=== PATIENT | male | born 1975 | race Two or more races ===

== ENCOUNTER 2024-02-14 10:45 | Outpatient (AMB) | payer OTHER, SELFPAY ==
--- NOTE | 2024-02-14 10:48 | MHC.OFFVIS ---
Vital Signs 02/14/24 11:03 Height 5 ft 4 in Weight 287 lb 14.779 oz BMI 49.4 BP 112/70 Blood Pressure Location Rt radial Position Sitting Pulse 81 Pulse Source Pulse Oximeter Pulse Oximetry (%) 93 Oxygen Delivery Method Room Air Intake Visit Reasons: bl hand pain/cm Intake Note: Patient presents for bilateral hand pain. Feeling tingling, numbness and sometimes my hands lock. It's been a year dealing with this. I take Aleve and it only works short term. Allergies acetaminophen [ACETAMINOPHEN] Allergy (Severe, Verified 02/14/24 10:56) HIVES amoxicillin [AMOXICILLIN] Allergy (Severe, Verified 02/14/24 10:56) HIVES Penicillins [PENICILLINS] Allergy (Severe, Verified 02/14/24 10:56) HIVES SEAFOOD Allergy (Severe, Uncoded 01/03/20 18:20) ANAPHYLAXIS Medication List - Last Reconciled 02/14/24 by Ary Vicente MD ammonium lactate 12% appl topical azithromycin 250 mg PO DIRECTED betamethasone dipropionate 0.05% topical capsaicin 0.1% appl topical cholecalciferol (vitamin D3) 1,250 mcg PO QWEEK doxepin 10 mg PO BEDTIME fluoxetine 20 mg PO DAILY fluticasone propionate 50 mcg/actuation sprays intranasal hydroxyzine pamoate 50 mg PO TID ketoconazole 2% topical lidocaine 5% 1 patch topical DAILY omeprazole 40 mg PO DAILY tizanidine 4 mg PO BEDTIME [wrist splint As directed] HPI Comments Details: This is a 48-year-old male who presents for evaluation of bilateral hand pain and elevated ESR. He states that the majority of his back pain is in his lower back. He had injections in his lower back which did not help much. He was recently referred to PT. patient twisted his ankle years ago and it did not heal properly. He states that he has a deformity now if his right ankle and has to use a cane, he holds the cane with his right hand. He states that his right hand sometimes gets stuck and stiff associated with tingling. He is unaware of any family history of an autoimmune rheumatic disease. Denies any history of DVT/PE [facility] Medical History Acute anxiety Obstructive sleep apnea (adult) (pediatric) Morbid (severe) obesity due to excess calories Vitamin D deficiency, unspecified Lumbago with sciatica, unspecified side Spondylosis, unspecified Acute depression Nonalcoholic steatohepatitis (SEVERINO) Prediabetes GERD (gastroesophageal reflux disease) Personal history of COVID-19 Surgical History History of excision of pilonidal cyst Social History Household Members: None Housing: House Alcohol intake: never Patient Tobacco Use Status: Current someday Tobacco user Tobacco use type: Cigarette Years Smoked: 30 Review of Systems ENT Reports neck pain Musc Reports arthralgias, Reports neck pain, Reports stiffness and Reports tingling Neuro Reports tingling Physical Exam Vital Signs: Last Vital Signs Pulse 81 02/14/24 11:03 BP 112/70 02/14/24 11:03 Pulse Ox 93 02/14/24 11:03 Oxygen Delivery Method Room Air 02/14/24 11:03 BMI result Body Mass Index 49.4 Const General: cooperative, healthy appearing and comfortable Nutritional Appearance: obese morbidly obese Orientation/consciousness: patient oriented x3 Limitations: ambulation with cane HEENT Other: Mildly dry oral mucosa Head: Yes normocephalic and Yes atraumatic Resp Effort & Inspection: normal respiratory effort and able to speak in complete sentences Auscultation: clear to auscultation bilaterally Skin General skin exam: no rashes or lesions noted Neuro General: patient oriented x3 Extrem Other: No significant arthritic changes of both hands Positive Tinel sign bilaterally Much more prominent on the right hand Normal bilateral hand forming machine tender strength Positive Spurling's test on the right Assessment & Plan Assessment & Plan (1) Right carpal tunnel syndrome: Code(s): G56.01 - Carpal tunnel syndrome, right upper limb Category: Medical Plan: This is a 48-year-old male who presents for evaluation of bilateral hand pain in the context of elevated ESR. Upon evaluation I do not see any signs suggestive of an autoimmune rheumatic disease. Right hand pain is likely related to overuse tendonitis. There is also a component of carpal tunnel syndrome. I prescribed him a wrist splint. If he continues to have ongoing tingling/numbness of his hands, I suggest getting bilateral upper extremity EMG/NCV. Follow-up with PCP (2) Degenerative cervical disc: Code(s): M50.30 - Other cervical disc degeneration, unspecified cervical region Category: Medical Plan: Positive Spurling's test on the right. Patient states that he will be going to PT for his lower back. I suggested doing PT for his neck as well. Plan I spent 46 minutes reviewing patient's chart, evaluating patient, placing orders, counseling patient and documenting in the chart Medications: New [wrist splint] As directed 1 ea 0RF G56.01 - Carpal tunnel syndrome, right upper limb Coding Level of Care Code New Pt Level 4 (65912) Diagnoses Right carpal tunnel syndrome G56.01 Degenerative cervical disc M50.30
[2024-02-14 11:03] VITALS: BP 112/70; PULSE 81; O2SAT 93; BMI 49.4
== END 2024-02-14 11:23 | disposition home or self-care (01) ==
LOC: HO.RHE 10:46
PROVIDERS: PCP Internal Medicine; Visit Provider Student in an Organized Health Care Education/Training Program
DX: G56.01 Carpal tunnel syndrome, right upper limb (principal); M50.30 Other cervical disc degeneration, unspecified cervical region
CPT/HCPCS: 99204

== ENCOUNTER → 2024-02-14 10:45 | Outpatient (BNVA) | payer OTHER, SELFPAY | PROVIDERS: PCP Internal Medicine; Visit Provider Student in an Organized Health Care Education/Training Program | DX: M50.30 Other cervical disc degeneration, unspecified cervical region (principal); G56.01 Carpal tunnel syndrome, right upper limb; M21.961 Unspecified acquired deformity of right lower leg; M54.50 Low back pain, unspecified; M79.642 Pain in left hand; M79.641 Pain in right hand | CPT/HCPCS: 99202 ==